=== PATIENT | male | born 2000 | race Caucasian/White ===

== ENCOUNTER 2019-07-04 09:14 | Emergency (ER) | payer SELFPAY ==
--- NOTE | 2019-07-04 09:27 | EDM.PDOC ---
ED HPI GENERAL MEDICAL PROBLEM - General Chief Complaint: Upper Extremity Injury/Pain Time Seen by Provider: 07/04/19 09:25 - History of Present Illness INITIAL COMMENTS - FREE TEXT/NARRATIVE: HISTORY AND PHYSICAL: History of present illness: Patient 19-year-old white male presents with concern of intermittent right wrist pain 2 years this is on the dorsal aspect of his wrist he states it's worse at night and is actually improved with activity he denies any other trauma or any other joint pain or other concern. Review of systems: As per history of present illness and below otherwise all systems reviewed and negative. Past medical history: As per history of present illness and as reviewed below otherwise noncontributory. Surgical history: As per history of present illness and as reviewed below otherwise noncontributory. Social history: No reported history of drug or alcohol abuse. Family history: As per history of present illness and as reviewed below otherwise noncontributory. Physical exam: HEENT: Atraumatic, normocephalic, pupils reactive, negative for conjunctival pallor or scleral icterus, mucous membranes moist, throat clear, neck supple, nontender, trachea midline. Lungs: Clear to auscultation, breath sounds equal bilaterally, chest nontender. Heart: S1S2, regular, negative for clicks, rubs, or JVD. Abdomen: Soft, nondistended, nontender. Negative for masses or hepatosplenomegaly. Negative for costovertebral tenderness. Pelvis: Stable nontender. Genitourinary: Deferred. Rectal: Deferred. Extremities: Atraumatic, negative for cords or calf pain. Neurovascular unremarkable. Neuro: Awake, alert, oriented. Cranial nerves II through XII unremarkable. Cerebellum unremarkable. Motor and sensory unremarkable throughout. Exam nonfocal. Diagnostics: X-ray right wrist Therapeutics: None Impression: 1 chronic intermittent right wrist pain Definitive disposition and diagnosis as appropriate pending reevaluation and review of above. Review of Systems - Review of Systems Review Of Systems: Comprehensive ROS is negative, except as noted in HPI. ED EXAM, GENERAL - Physical Exam Exam: See Below (dictation) Departure - Departure Time of Disposition: 09:26 Disposition: Home, Self-Care 01 Condition: Good Clinical Impression: Wrist pain, chronic - Discharge Information Additional Instructions: The following information is given to patients seen in the emergency department who are being discharged to home. This information is to outline your options for follow-up care. We provide all patients seen in our emergency department with a follow-up referral. The need for follow-up, as well as the timing and circumstances, are variable depending upon the specifics of your emergency department visit. If you don't have a primary care physician on staff, we will provide you with a referral. We always advise you to contact your personal physician following an emergency department visit to inform them of the circumstance of the visit and for follow-up with them and/or the need for any referrals to a consulting specialist. The emergency department will also refer you to a specialist when appropriate. This referral assures that you have the opportunity for followup care with a specialist. All of these measure are taken in an effort to provide you with optimal care, which includes your followup. Under all circumstances we always encourage you to contact your private physician who remains a resource for coordinating your care. When calling for followup care, please make the office aware that this follow-up is from your recent emergency room visit. If for any reason you are refused follow-up, please contact the [facility] emergency department at and asked to speak to the emergency department charge nurse. JOHNIE [facility] - Orthopedic Clinic Professional Building [address] [place] [address], [address] [place] [address] Jose as prescribed follow-up orthopedic clinic return as needed as discussed
--- NOTE | 2019-07-04 09:53 | CR ---
INDICATION: Pain. TECHNIQUE: Three views of the right wrist. FINDINGS: No fracture, dislocation, erosion, or intrinsic lesion. IMPRESSION: Negative right wrist. Dictated by Abhishek Heller MD @ Jul 04 2019 9:50AM Signed by Dr. Abhishek Heller @ Jul 04 2019 9:51AM
== END 2019-07-04 10:41 | disposition home or self-care (01) ==
LOC: MW.ED 09:14
DX: M25.531 Pain in right wrist (principal); G89.29 Other chronic pain
CPT/HCPCS: 73110-26-RT; 73110-RT; 99282; 99283-25

== ENCOUNTER 2024-02-25 07:14 | Emergency (ER) | payer SELFPAY | END 2024-02-25 08:02 | disposition home or self-care (01) | LOC: EDBD 07:14 → MW.ED 07:14 | DX: S96.911A Strain of unspecified muscle and tendon at ankle and foot level, right foot, initial encounter (principal); Z88.8 Allergy status to other drugs, medicaments and biological substances; Z79.899 Other long term (current) drug therapy; X58.XXXA Exposure to other specified factors, initial encounter; Y93.89 Activity, other specified; Y99.0 Civilian activity done for income or pay | CPT/HCPCS: 73630-26-RT; 73630-RT; 73660-26-T6; 73660-T6; 99283 ==